=== PATIENT | female | born 1980 | race Caucasian/White ===

== ENCOUNTER 2018-10-03 12:46 | Emergency (ER) | payer SELFPAY ==
[2018-10-03] MEDS ORDERED: CODEINE 30MG/APAP 300MG TAB ONE (14:45)
[2018-10-03] MEDS ORDERED: IBUPROFEN 400 MG TAB ONE (14:45)
--- NOTE | 2018-10-03 15:31 | EDPHYS ---
Physician Documentation [facility] Name: Muriel Fernando Age: 38 yrs Sex: Female : 1980 Arrival Date: 10/03/2018 Time: 12:48 Bed 26 Private MD: ED Physician Truman Burleson HPI: 10/03 14:35 This 38 yrs old Female presents to ER via Wheelchair with complaints of Fall cp Injury - Leg Pain. 14:35 Details of fall: The patient fell from a height, down approximately 4 stairs. cp 14:35 Onset: The symptoms/episode began/occurred yesterday. Associated injuries: The patient cp sustained left knee, painful injury. Severity of symptoms: in the emergency department the symptoms are actually worse, markedly. 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 - Social history:: Smoking status: Patient/guardian denies using tobacco. - Ebola Screening: : No symptoms or risks identified at this time. ROS: 14:45 Constitutional: Negative for body aches, chills, fever, poor PO intake. cp 14:45 Cardiovascular: Negative for chest pain. cp 14:45 Respiratory: Negative for cough, shortness of breath, wheezing. 14:45 Abdomen/GI: Negative for abdominal pain. 14:45 Back: Negative for pain at rest, pain with movement. 14:45 MS/extremity: Positive for decreased range of motion, pain, tenderness, of the left knee, Negative for deformity, paresthesias, warmth. 14:45 Neuro: Negative for altered mental status, headache, loss of consciousness. 14:45 All other systems are negative. Exam: 14:50 Constitutional: The patient appears in no acute distress, alert, awake, well developed, cp well nourished. 14:50 Head/Face: Normocephalic, atraumatic. cp 14:50 Neck: ROM/movement: is normal, is supple, without pain, no range of motions limitations, no nuchal rigidity. 14:50 Chest/axilla: Inspection: normal, Palpation: is normal, no crepitus, no tenderness. 14:50 Cardiovascular: Rate: normal. 14:50 Respiratory: the patient does not display signs of respiratory distress, Respirations: normal, no use of accessory muscles, no retractions, no splinting, no tachypnea, labored breathing, is not present. 14:50 Abdomen/GI: Inspection: abdomen appears normal, Palpation: abdomen is soft and non-tender, in all quadrants. 14:50 Back: pain, is absent, ROM is normal. 14:50 Musculoskeletal/extremity: ROM: limited passive range of motion due to pain, in the left knee, Perfusion: the extremity is normally perfused throughout, Sensation intact. Joints: All joints are normal except the left knee displays pain at rest, painful range of motion, mild swelling medial aspect left knee with marked tenderness to palpation. 14:50 Neuro: Orientation: to person, place \T\ time. Mentation: is normal, Motor: moves all fours, strength is normal. Vital Signs: 13:13 BP 143 / 89; Pulse 66; Resp 18; Temp 99.0(TE); Pulse Ox 97% on R/A; Weight 99.79 kg aa5 (R); Height 5 ft. 4 in. (162.56 cm) (R); Pain 8/10; 16:13 BP 138 / 85; Pulse 71; Resp 16 S; Pulse Ox 100% on R/A; ca1 13:13 Body Mass Index 37.76 (99.79 kg, 162.56 cm) aa5 Procedures: 16:05 Splinting: Splint applied to left knee using knee immobilizer, applied by nurse. cp Examined by me, post splint application: neurovascular intact, Patient tolerated well. MDM: 14:05 Patient medically screened. cp 15:30 Data reviewed: vital signs, nurses notes, radiologic studies, plain films. cp 15:30 Differential diagnosis: closed head injury, contusion, fracture, multiple trauma. Test cp interpretation: by ED physician or midlevel provider: xrays of left knee negative for fracture. Counseling: I had a detailed discussion with the patient and/or guardian regarding: the historical points, exam findings, and any diagnostic results supporting the discharge/admit diagnosis, radiology results, the need for outpatient follow up, a orthopedic surgeon, to return to the emergency department if symptoms worsen or persist or if there are any questions or concerns that arise at home. Response to treatment: the patient's symptoms have mildly improved after treatment, and as a result, I will discharge patient. 10/03 14:34 Order name: XRAY Knee LEFT 3 view cp 10/03 15:11 Order name: Knee Immobilizer; Complete Time: 16:10 cp 10/03 15:11 Order name: Crutches; Complete Time: 16:10 cp Administered Medications: 14:45 Drug: Tylenol #3 (300 mg-30 mg) 2 tabs {Note: RASS - 0.} Route: PO; ca1 16:10 Follow up: Response: No adverse reaction ca1 14:45 Drug: Ibuprofen 800 mg Route: PO; ca1 16:10 Follow up: Response: No adverse reaction; Pain is decreased ca1 15:35 Drug: morphine 4 mg {Note: RASS - 0.} Route: IM; Site: right deltoid; ca1 16:09 Follow up: Response: No adverse reaction; Pain is decreased; RASS: Alert and Calm (0) ca1 Disposition: 16:30 Chart complete. cp Disposition: 10/03/18 15:30 Discharged to Home. Impression: Pain in left knee. - Condition is Stable. - Discharge Instructions: Elastic Bandage and RICE, Knee Immobilizer. - Prescriptions for Naprosyn 500 mg Oral Tablet - take 1 tablet by ORAL route 2 times per day take with food; 20 tablet. Tylenol- Codeine #3 300-30 mg Oral Tablet - take 2 tablets by ORAL route every 8 hours As needed; 15 tablet. - Medication Reconciliation Form, Thank You Letter, Antibiotic Education, Prescription Opioid Use form. - Follow up: Private Physician; When: 2 - 3 days; Reason: Recheck today's complaints, orthopedist. - Problem is new. - Symptoms have improved. Addendum: 10/05/2018 08:52 Co-signature as Attending Physician, Truman Burleson MD I agree with the assessment and k dr plan of care. Signatures: Dispatcher [employer] EDMS Truman Burleson MD MD [facility] Eva Shirley RN RN aa5 Garrison Diallo PA PA cp Azul Arriaga RN RN ca1 Corrections: (The following items were deleted from the chart) 10/03 15:44 14:34 Urine Dipstick-Ancillary ordered. cp ca1 15:44 14:34 Urine Test ordered. cp ca1 16:15 15:30 10/03/2018 15:30 Discharged to Home. Impression: Pain in left knee. Condition is ca1 Stable. Forms are Medication Reconciliation Form, Thank You Letter, Antibiotic Education, Prescription Opioid Use. Follow up: Private Physician; When: 2 - 3 days; Reason: Recheck today's complaints, orthopedist. Problem is new. Symptoms have improved. cp
--- NOTE | 2018-10-03 15:31 | ER ---
Nurse's Notes [facility] Name: Muriel Fernando Age: 38 yrs Sex: Female : 1980 Arrival Date: 10/03/2018 Time: 12:48 Bed 26 Private MD: Diagnosis: Pain in left knee Presentation: 10/03 13:08 Presenting complaint: Patient states: "I fell about 4 steps last night and hurt my left aa5 leg". Denies LOC, denies head injury. Pt reports inability to bear weight to left leg. Transition of care: patient was not received from another setting of care. Onset of symptoms was September 2018. Risk Assessment: Do you want to hurt yourself or someone else? Patient reports no desire to harm self or others. Initial Sepsis Screen: Does the patient meet any 2 criteria? No. Patient's initial sepsis screen is negative. Does the patient have a suspected source of infection? No. Patient's initial sepsis screen is negative. Care prior to arrival: None. 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 - Social history:: Smoking status: Patient/guardian denies using tobacco. - Ebola Screening: : No symptoms or risks identified at this time. Screenin:30 Abuse screen: Denies threats or abuse. Denies injuries from another. Nutritional ca1 screening: No deficits noted. Tuberculosis screening: No symptoms or risk factors identified. Fall Risk None identified. Assessment: 14:30 General: Appears in no apparent distress. comfortable, Behavior is cooperative, ca1 appropriate for age, crying. Pain: Complains of pain in left knee Pain currently is 10 out of 10 on a pain scale. Neuro: Level of Consciousness is awake, alert, obeys commands, Oriented to person, place, time, situation. Derm: Skin is intact, is healthy with good turgor, Skin is pink, warm \\T\\ dry. Musculoskeletal: Circulation, motion, and sensation intact. Capillary refill < 3 seconds, Range of motion: limited in left knee. 15:30 Reassessment: Patient appears in no apparent distress at this time. Patient and/or ca1 family updated on plan of care and expected duration. Pain level reassessed. Patient is alert, oriented x 3, equal unlabored respirations, skin warm/dry/pink. 16:13 Reassessment: Patient appears in no apparent distress at this time. Patient is alert, ca1 oriented x 3, equal unlabored respirations, skin warm/dry/pink. Vital Signs: 13:13 BP 143 / 89; Pulse 66; Resp 18; Temp 99.0(TE); Pulse Ox 97% on R/A; Weight 99.79 kg aa5 (R); Height 5 ft. 4 in. (162.56 cm) (R); Pain 8/10; 16:13 BP 138 / 85; Pulse 71; Resp 16 S; Pulse Ox 100% on R/A; ca1 13:13 Body Mass Index 37.76 (99.79 kg, 162.56 cm) aa5 ED Course: 12:48 Patient arrived in ED. as 13:11 Triage completed. aa5 13:11 Arm band placed on. aa5 13:59 Garrison Diallo PA is PHCP. cp 13:59 Truman Burleson MD is Attending Physician. cp 14:30 Patient has correct armband on for positive identification. Bed in low position. Call ca1 light in reach. Side rails up X 1. Pulse ox on. NIBP on. 14:42 Azul Arriaga, RN is Primary Nurse. ca1 15:09 XRAY Knee LEFT 3 view In Process Unspecified. EDMS 16:10 No provider procedures requiring assistance completed. Patient did not have IV access ca1 during this emergency room visit. Crutch training done. Knee immobilizer applied on left knee. Administered Medications: 14:45 Drug: Tylenol #3 (300 mg-30 mg) 2 tabs {Note: RASS - 0.} Route: PO; ca1 16:10 Follow up: Response: No adverse reaction ca1 14:45 Drug: Ibuprofen 800 mg Route: PO; ca1 16:10 Follow up: Response: No adverse reaction; Pain is decreased ca1 15:35 Drug: morphine 4 mg {Note: RASS - 0.} Route: IM; Site: right deltoid; ca1 16:09 Follow up: Response: No adverse reaction; Pain is decreased; RASS: Alert and Calm (0) ca1 Outcome: 15:30 Discharge ordered by . cp 16:14 Discharged to home via wheelchair, with significant other. ca1 16:14 Condition: stable 16:14 Discharge instructions given to patient, Instructed on discharge instructions, follow up and referral plans. medication usage, crutch walking, Demonstrated understanding of instructions, follow-up care, medications, crutch walking, Prescriptions given X 2. 16:15 Patient left the ED. ca1 Signatures: Dispatcher [employer] EDLeeanne Cheung Audri, RN RN aa5 Garrison Diallo PA PA cp Acob, Cheryl RN RN ca1
[2018-10-03] MEDS ORDERED: MORPHINE 4 MG/ML SYR ONE (15:37)
--- NOTE | 2018-10-03 16:58 | RAD REPORT ---
EXAM DESCRIPTION: RAD - Knee Left 3 View - 10/03/2018 3:08 pm CLINICAL HISTORY: Left knee pain status post injury FINDINGS: No fracture or dislocation is seen. If the patient continues have symptoms to suggest an occult fracture, ligamentous or meniscal injury then MRI would be recommended
== END 2018-10-03 16:15 | disposition home or self-care (01) ==
LOC: ER 12:46
DX: M25.562 Pain in left knee (principal); F41.9 Anxiety disorder, unspecified; F90.9 Attention-deficit hyperactivity disorder, unspecified type
CPT/HCPCS: 96372; 99284